=== PATIENT | male | born 1965 | race Caucasian/White ===

== ENCOUNTER → 2021-11-17 | Outpatient (CLI) | payer OTHER ==
[~2021-11-17] MED LIST: IOHEXOL 240 MG/ML 50ML VIAL. PO ONE; IOHEXOL 300 MG/ML 75 ML VIAL. IV ONE; IOHEXOL 350 MG/ML 100 ML VIAL. IV ONE
--- NOTE | 2021-11-17 11:10 | RAD ---
Exam: CT abdomen/pelvis without intravenous contrast Indication: Left renal mass, recurring UTI Comparison: None Technique: Helical CT imaging performed of the abdomen and pelvis without the use of intravenous cont rast. Sagittal and coronal reformats were obtained. One or more of the following individualized dose reduction techniques were utilized for this examinat ion: 1. Automated exposure control 2. Adjustment of the mA and/or kV according to patient size 3. Use of iterative reconstruction technique. Findings: Inherently limited evaluation without intravenous contrast. Lower chest: There is a 4 x 2 cm cyst in the left lung base abutting the left heart border. Mild martin cent scarring or atelectasis in the left lower lobe. The heart is normal in size. Liver: Normal noncontrast appearance of the liver. Gallbladder/Biliary Tree: Normal. Pancreas: Normal. Spleen: Normal. Adrenal Glands: Normal. 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 There is severe hydronep hrosis and hydroureter of the upper pole moiety with mild urothelial thickening and surrounding fat s tranding. The lower pole moiety is normal in appearance. There is no urolithiasis. There is a 2.5 cm simple right renal cyst. Right kidney is otherwise normal. Right ureter is normal. The bladder is unr emarkable. Reproductive Organs: Prostate gland is normal. Stomach, small bowel, and colon: The stomach, small bowel, and appendix are normal. There is mild sig moid diverticulosis without acute diverticulitis. Vasculature: Abdominal aorta is normal in caliber. Lymph Nodes: No lymphadenopathy. Peritoneum and retroperitoneum: No free fluid or free air. Bones: No acute osseous abnormality. Miscellaneous: Small fat-containing left inguinal hernia. IMPRESSION: 1. 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 2. Mild sigmoid diverticulosis. 3. Small fat-containing left inguinal hernia. Electronically signed by: Kena Gomez MD (11/17/2021 11:08 AM) [id number]
== END ==
LOC: CT 10:17
PROVIDERS: ATTEND Family Medicine
DX: K57.30 Diverticulosis of large intestine without perforation or abscess without bleeding (principal); K40.90 Unilateral inguinal hernia, without obstruction or gangrene, not specified as recurrent; Q63.0 Accessory kidney; N13.30 Unspecified hydronephrosis; N13.4 Hydroureter
CPT/HCPCS: 74178; Q9967